=== PATIENT | male | born 1950 | race Caucasian/White ===

== ENCOUNTER → 2017-11-10 19:19 | Outpatient (CLI) | payer MEDICARE, SELFPAY ==
--- NOTE | 2017-11-10 12:00 | CYSPIN_PTH ---
PATIENT: ALIA LEOS LOC: [facility] U#:[id number] AGE/SX: 75/M ROOM: RE11/10/[address]: Dr. Beck Murillo MD : 1950 BED: DIS: SPEC #: [id number] RECD: 11/11/17 08:08 STATUS: MARIANNA JUNO #: [id number] YEIMI: 11/10/17 12:[address]: Beck Murillo DEPT: CYTOLOGY RECD BY: Steven Asher ENTERED: 11/11/17 08:09 SP TYPE: CYSPIN FL OTHR DR: Dr. Ronnie Cardoso MD Tissues: Urine Procedures: Pap Stain (control) Special Stain Group II Cytospin Fluid HEADER OPERATION: Not noted PRE-OP DIAGNOSIS: History of bladder CA TISSUE SUBMITTED: Urine for cytology DIAGNOSIS CYTOLOGY Urine for cytology (cytospin): Negative for malignant cells. AM:efren 11/12/17 CYTOLOGY STUDY Slides are reviewed. CYTOLOGY GROSS Received is 65 ml of clear yellow fluid labeled with the patient's name and and designated per the requisition as urine. Submitted for cytology preparation. 11/11/17 TC:5 CPT: 82855
[2017-11-10 19:21] LABS: Cytology, Body Fluid / CSF SEE PATHOLOGY REPORT
== END ==
PROVIDERS: Family Provider Family Medicine; PCP Family Medicine; Visit Provider Urology
DX: Z85.51 Personal history of malignant neoplasm of bladder (principal)
CPT/HCPCS: 88108; 88313

== ENCOUNTER → 2018-02-20 12:11 | Outpatient (CLI) | payer MEDICARE, SELFPAY ==
--- NOTE | 2018-02-20 | BLA_PTH ---
PATIENT: ALIA LEOS LOC: [facility] U#:[id number] AGE/SX: 75/M ROOM: RE02/20/[address]: Dr. Beck Murillo MD : 1950 BED: DIS: SPEC #: [id number] RECD: 02/20/18 13:27 STATUS: MARIANNA JUNO #: [id number] YEIMI: 02/20/18 00:[address]: Beck Murillo DEPT: SURGICAL PATHOLOGY RECD BY: Angelito Freeman ENTERED: 02/20/18 13:27 SP TYPE: BLADDER BX OTHR DR: Dr. Ronnie Cardoso MD Tissues: Urinary bladder, NOS Procedures: Surgery Specimen Level IV HEADER OPERATION: Bladder biopsy PRE-OP DIAGNOSIS: Bladder CA TISSUE SUBMITTED: Bladder biopsy MICROSCOPIC DIAGNOSIS Bladder, biopsy: Papillary urothelial carcinoma with the following characteristics: Grade ? 1/3 Lamina propria invasion ? not identified Lymphvascular invasion ? not identified Detrusor muscle ? not present in the submitted specimen. JUAN F:efren 02/24/18 COMMENT The entire specimen consists of tumor. Please make reference to previous specimen ([id number]), bladder tumor, TUR and bladder tumor base, TUR (specimen B & C) with diagnosis of papillary urothelial carcinoma and ([id number]) bladder, biopsy with diagnosis of papillary urothelial carcinoma. MICROSCOPIC DESCRIPTION Slides are reviewed. GROSS DESCRIPTION Received in fixative is one container labeled with the patient's name and designated bladder biopsy. The specimen consists of one irregular fragment of light marquis soft tissue that measures 0.2 x 0.1 x 0.1 cm. The specimen is totally submitted in one cassette. / JUAN F:efren 02/20/18 TC:0 CPT: 28726
== END ==
PROVIDERS: Family Provider Family Medicine; PCP Family Medicine; Visit Provider Urology
DX: C67.9 Malignant neoplasm of bladder, unspecified (principal)
CPT/HCPCS: 88305

== ENCOUNTER → 2018-07-16 10:07 | Outpatient (CLI) | payer MEDICARE, SELFPAY ==
[2018-07-16 12:34] LABS: BUN 10 mg/dL (7-18); Creatinine, Serum 1.02 mg/dL (0.70-1.30); Glucose 91 mg/dL (74-106)
[2018-07-16 12:35] LABS: Anion Gap 3 (5-15); BUN/Creat Ratio 9.8 RATIO (10-20); Calcium,Total 8.4 mg/dL (8.5-10.1); Chloride 106 mmol/L (98-107); Cholesterol 197 mg/dL (200); EST Glomerular Filtration Rate 78 mL/min (>60); Est Glom Filt Rate - Afr Amer 94 mL/min (>60); High Density Lipoprotein 72 mg/dL; PSA,Total - Annual Screen 1.43 ng/mL (0.00-4.00); Potassium 3.9 mmol/L (3.5-5.1); Sodium Level 140 mmol/L (136-145); Triglycerides 67 mg/dL; Very Low Density Lipoprotein 13 mg/dL (5-40)
== END ==
PROVIDERS: Family Provider Family Medicine; PCP Family Medicine; Visit Provider Family Medicine
DX: Z13.1 Encounter for screening for diabetes mellitus (principal); Z13.220 Encounter for screening for lipoid disorders; Z12.5 Encounter for screening for malignant neoplasm of prostate; I10 Essential (primary) hypertension
CPT/HCPCS: 36415; 80048; 80061; 84153; G0103

== ENCOUNTER → 2018-10-12 17:01 | Outpatient (CLI) | payer MEDICARE, SELFPAY ==
[2018-08-06 08:59] VITALS: BMI 24.7
== END ==
PROVIDERS: Family Provider Family Medicine; PCP Family Medicine; Referring Provider Urology; Visit Provider Urology
DX: Z85.51 Personal history of malignant neoplasm of bladder (principal); R31.9 Hematuria, unspecified
CPT/HCPCS: 87086

== ENCOUNTER → 2019-08-31 15:28 | Outpatient (CLI) | payer MEDICARE, SELFPAY ==
[2019-08-31 16:50] LABS: Anion Gap 3 (5-15); BUN 15 mg/dL (7-18); BUN/Creat Ratio 15.1 RATIO (10-20); Calcium,Total 8.9 mg/dL (8.5-10.1); Chloride 106 mmol/L (98-107); Creatinine, Serum 0.99 mg/dL (0.70-1.30); EST Glomerular Filtration Rate 80 mL/min (>60); Est Glom Filt Rate - Afr Amer 97 mL/min (>60); Glucose 99 mg/dL (74-106); Potassium 4.4 mmol/L (3.5-5.1); Sodium Level 140 mmol/L (136-145)
== END ==
PROVIDERS: Family Provider Family Medicine; PCP Family Medicine; Referring Provider Internal Medicine Cardiovascular Disease; Visit Provider Internal Medicine Cardiovascular Disease
DX: Q23.1 Congenital insufficiency of aortic valve (principal)
CPT/HCPCS: 36415; 80048

== ENCOUNTER → 2019-09-16 13:15 | Outpatient (CLI) | payer MEDICARE, SELFPAY ==
[2019-08-31 12:15] VITALS: BMI 24.7
--- NOTE | 2019-09-16 14:03 | CT_ITS ---
HISTORY: DILATED AORTIC ROOT, CONGENITAL INSUFFICIENCY AORTIC VALVE ADDITIONAL HISTORY: None provided. TECHNIQUE: CT angiogram images of the chest were obtained with 100 mL Isovue-370 IV contrast as per aortic protocol. 3D MIP images used to aid in vascular evaluation Number of images including paperwork: 1212 A radiation dose optimization technique was used for this scan. COMPARISON: 11/05/2013 FINDINGS: PULMONARY ARTERIES: No pulmonary arterial filling defects. AORTA AND GREAT VESSELS: Aortic valve calcification noted, probably increased compared to previous although difficult to directly compare due to motion artifact on the previous study.. Aortic root measures 3.8 cm. Ascending aorta measures 3.9 cm. Aortic arch measures 3.2 cm, previously 3 cm.. Descending thoracic aorta measures up to 2.9 cm, previously 2.7 cm. HEART/PERICARDIUM: Upper normal size with suggestion of left ventricular hypertrophy, echocardiography more sensitive for cardiac evaluation. Coronary calcification. MEDIASTINUM: Unremarkable. ADENOPATHY: No pathologic appearing adenopathy. THYROID: Unremarkable visualized portions. LUNG PARENCHYMA: No consolidation or mass. Minimal basilar atelectasis versus scarring. PLEURAL SPACES: Unremarkable. UPPER ABDOMEN: Unremarkable. OSSEOUS AND SOFT TISSUE STRUCTURES: No acute skeletal findings. CT/CTA Chest W/WO Contrast IMPRESSION: 1. No aortic aneurysm detected. 2. Possible increase in aortic valve calcification compared to the previous study. 3. Additional findings above. Individualized dose optimization techniques were used for this CT. at 2238 Reported and signed by: Anahi Cool MD Electronically Signed: Anahi Cool MD at 22:38 EST Tel , Service support ,
--- NOTE | 2019-09-16 14:11 | ECHOD_ITS ---
Reason For Study: Bicuspid Aortic Valve Procedure This was a 2D Doppler, Color Flow transthoracic echocardiogram. Exam performed in department. Left Ventricle Normal LV size. Mild concentric left ventricular hypertrophy. Left ventricular systolic function is normal. The estimated ejection fraction is 65 %. No regional wall motion abnormalities noted. Right Ventricle Normal RV size. Normal systolic function. Atria Normal left atrium. Normal right atrium. Mitral Valve Normal mitral valve. Mild (1+) mitral valve insufficiency. Tricuspid Valve Normal tricuspid valve. Mild (1+) tricuspid valve insufficiency. Pulmonary artery systolic pressure is 26 mmHg. Aortic Valve Trisinus/trileaflet aortic valve. Mild focal aortic valve calcification. Peak aortic valve gradient 27 mmHg. Mean aortic valve gradient 14 mmHg. Mild aortic stenosis. Calculated aortic valve area (continuity equation) is 2.0 cm2. Mild (1+) aortic valve insufficiency. Pulmonic Valve Normal pulmonic valve. Great Vessels Normal aortic root. The pulmonary artery is normal size. Normal inferior vena cava. Pericardium/Pleural No pericardial effusion. MMode/2D Measurements & Calculations LVIDd: 5.0 cm IVSd: 1.2 cm LVOT diam: 2.3 cm LVIDs: 2.8 cm LVPWd: 1.2 cm LVOT area: 4.0 cm2 RVDd: 3.1 cm FS: 44.1 % Ao root diam: 4.1 cm LAV(MOD-bp): 51.6 ml LA A4 area: 18.3 cm2 LAV(MOD-bp) Indexed: 25.9 ml/m2 LAV(MOD-sp2): 45.7 ml LAV(MOD-sp4): 52.2 ml LA dimension(2D): 3.2 cm RA A4 area: 15.2 cm2 Doppler Measurements & Calculations MV E max charli: 103.8 cm/sec Lat Peak E' Charli: 12.2 cm/sec Med Peak E' Charli: 8.5 cm/sec MV A max charli: 77.5 cm/sec E/E' lat: 8.5 E/E' med: 12.2 MV E/A: 1.3 Ao V2 max: 261.7 cm/sec AI max charli: 491.5 cm/sec LV V1 max: 132.9 cm/sec Ao max P.4 mmHg AI max P.8 mmHg LV V1 max P.1 mmHg Ao V2 mean: 180.2 cm/sec AI dec slope: 146.4 cm/sec2 LV V1 mean P.7 mmHg Ao mean P.5 mmHg AI P1/2t: 983.4 msec LV V1 mean: 90.5 cm/sec Ao V2 VTI: 58.9 cm LV V1 VTI: 31.3 cm ALCIRA(I,D): 2.1 cm2 ALCIRA(V,D): 2.0 cm2 SV(LVOT): 125.5 ml PA V2 max: 89.6 cm/sec TR max charli: 234.7 cm/sec TR max P.0 mmHg Interpretation Summary Normal LV size. Mild concentric left ventricular hypertrophy. Left ventricular systolic function is normal. The estimated ejection fraction is 65 %. Mild focal aortic valve calcification. Mean aortic valve gradient 14 mmHg. Mild (1+) aortic valve insufficiency. Mild aortic stenosis. Ordering Physician: Familia Tee Referring Physician: Ronnie Cardoso MD Performed By: Mary Estes RDCS
== END ==
PROVIDERS: Family Provider Family Medicine; PCP Family Medicine; Referring Provider Internal Medicine Cardiovascular Disease; Visit Provider Internal Medicine Cardiovascular Disease
DX: Q23.1 Congenital insufficiency of aortic valve (principal)
CPT/HCPCS: 71275; 93306

== ENCOUNTER → 2020-02-08 | Outpatient (CLI) | payer MEDICARE, SELFPAY ==
[2019-08-31 12:15] VITALS: BMI 24.7
--- NOTE | 2020-02-08 09:15 | FLU_PTH ---
PATIENT: ALIA LEOS [facility] U[facility][id number] AGE/SX: 70/M ROOM: RE02/08/[address]: Dr. Beck Murillo MD : 1950 BED: DIS: 02/08/2020 SPEC #: [id number] RECD: 02/08/20 15:00 STATUS: MARIANNA JUNO #: [id number] YEIMI: 02/08/20 09:[address]: Beck Murillo DEPT: CYTOLOGY RECD BY: Marlon Dozier ENTERED: 02/09/20 08:57 SP TYPE: Fluid OTHR DR: Dr. Ronnie Cardoso MD Tissues: Urine Procedures: Special Stain Group II Cytospin Fluid HEADER OPERATION: Not noted PRE-OP DIAGNOSIS: Malignant neoplasm of bladder C67.8 TISSUE SUBMITTED: Urine for cytology DIAGNOSIS CYTOLOGY Urine for cytology (cytospin): Negative for malignant cells. Paucicellular specimen. See comment. SJ:efren 02/10/20 COMMENT Acellular amorphous material is also noted. Clinical correlation and appropriate follow up are necessary. Please make reference to previous specimens ([id number]) bladder tumor, TUR and bladder tumor base, TUR and ([id number]) bladder, biopsy and ([id number]) bladder, biopsy with diagnosis of papillary urothelial carcinoma. CYTOLOGY STUDY Slides are reviewed. CYTOLOGY GROSS Received is 30 ml of yellow hazy fluid labeled with the patient's name and and designated per the requisition as urine. Submitted for cytology preparation. / efren 02/09/20 TC:5 CPT: 88371
[2020-02-08 17:14] LABS: Cytology, Body Fluid / CSF SEE PATHOLOGY REPORT
== END | disposition home or self-care (01) ==
PROVIDERS: PCP Family Medicine; Referring Provider Urology; Visit Provider Urology
DX: C67.8 Malignant neoplasm of overlapping sites of bladder (principal)
CPT/HCPCS: 88108; 88313

== ENCOUNTER → 2020-07-31 | Outpatient (CLI) | payer MEDICARE, SELFPAY ==
[2019-08-31 12:15] VITALS: BMI 24.7
--- NOTE | 2020-07-31 | CYSPIN_PTH ---
PATIENT: ALIA LEOS [facility] U[facility][id number] AGE/SX: 70/M ROOM: RE07/31/[address]: Dr. Beck Murillo MD : 1950 BED: DIS: 07/31/2020 SPEC #: [id number] RECD: 07/31/20 11:30 STATUS: MARIANNA JUNO #: [id number] YEIMI: 07/31/20 00:[address]: Beck Murillo DEPT: CYTOLOGY RECD BY: Marlon Dozier ENTERED: 07/31/20 13:18 SP TYPE: CYSPIN FL OTHR DR: Dr. Ronnie Cardoso MD Tissues: Urine Procedures: Pap Stain (control) Special Stain Group II Cytospin Fluid HEADER OPERATION: Not noted PRE-OP DIAGNOSIS: Asymptomatic microscopic hematuria TISSUE SUBMITTED: Urine for cytology DIAGNOSIS CYTOLOGY Urine for cytology (cytospin): Negative for malignant cells. Paucicellular specimen. SJ:efren 08/01/20 COMMENT Correlation with clinical findings and appropriate follow up are necessary. Please make reference to previous specimens ([id number]) urine for cytology with diagnosis of negative for malignant cells and paucicellular specimen and ([id number]) bladder tumor, TUR and bladder tumor base, TUR and ([id number]) bladder, biopsy and ([id number]) bladder, biopsy with diagnosis of papillary urothelial carcinoma. CYTOLOGY STUDY Slides are reviewed. CYTOLOGY GROSS Received is 20 ml of yellow cloudy fluid labeled with the patient's name and and designated per the requisition as urine. Submitted for cytology preparation. / efren 07/31/20 TC:5 CPT: 64571
[2020-07-31 11:33] LABS: Cytology, Body Fluid / CSF SEE PATHOLOGY REPORT
== END | disposition home or self-care (01) ==
PROVIDERS: PCP Family Medicine; Referring Provider Urology; Visit Provider Urology
DX: R31.21 Asymptomatic microscopic hematuria (principal)
CPT/HCPCS: 88108; 88313

== ENCOUNTER → 2020-08-07 09:03 | Outpatient (CLI) | payer MEDICARE, SELFPAY ==
[2019-08-31 12:15] VITALS: BMI 24.7
--- NOTE | 2020-08-07 09:07 | RAD_ITS ---
STUDY: X-RAY - CERVICAL SPINE REASON FOR EXAM: Male, 70 years old. Neck pain TECHNIQUE: 5 view(s) of the cervical spine were obtained including oblique views. COMPARISON: None FINDINGS: Normal anterior atlantoaxial articulation. Normal odontoid process. There is reversal of the normal cervical lordosis. There is multi-level endplate spondylosis. There is multi-level degenerative disc disease with multilevel disc space narrowing. No neural foraminal stenosis at the C4-C5 and C5-C6 levels. The soft tissue structures are unremarkable. RAD/Cerv Spine 4 or 5 Views IMPRESSION: Multilevel disc space narrowing and spondylosis with narrowing of the intervertebral foramen at the C4-C5 and C5-C6 levels. Electronically Signed: Isaiah Cordero, at 15:57 EST , Service support ,
[2020-08-07 10:42] LABS: Anion Gap 5 (5-15); BUN 13 mg/dL (7-18); BUN/Creat Ratio 13.6 RATIO (10-20); Calcium,Total 8.9 mg/dL (8.5-10.1); Chloride 104 mmol/L (98-107); Creatinine, Serum 0.96 mg/dL (0.70-1.30); EST Glomerular Filtration Rate 83 mL/min (>60); Est Glom Filt Rate - Afr Amer 100 mL/min (>60); Glucose 92 mg/dL (74-106); PSA,Total - Annual Screen 0.64 ng/mL (0.00-4.00); Potassium 4.3 mmol/L (3.5-5.1); Sodium Level 141 mmol/L (136-145)
== END ==
PROVIDERS: PCP Family Medicine; Referring Provider Family Medicine; Visit Provider Family Medicine
DX: I10 Essential (primary) hypertension (principal); Z12.5 Encounter for screening for malignant neoplasm of prostate; M54.2 Cervicalgia
CPT/HCPCS: 36415; 72050; 80048; 84153; G0103

== ENCOUNTER 2020-08-14 15:11 | Outpatient (RCR) | payer MEDICARE, SELFPAY ==
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
--- NOTE | 2020-10-04 10:57 | HP.PT.NRP ---
ALIA LEOS was seen in my office for initial evaluation on 08/14/20. The following Plan of Care was established for this patient: Initial Frequency: 1x/Week Initial Duration: 1 Week Patient/Client Instruction: Educate patient on: Condition, Plan of Care For the Purpose of:: To improve self management Therapeutic Exercise to Include: Strength training, Postural training, Flexibilty training, Neuromotor development For the Purpose of:: To increase ROM This patient was last seen in our office 08/14/20. Pertinent comments regarding their Physical therapy will appear below: This patient has not returned to Physical Therapy and is appropriate to return to MD for further follow-up as needed. At this point I will be discontinuing this patient from physical therapy. I would be happy to see this patient again in the future if found appropriate by the physician. Thank you! Veronique Peraza, PT, Cert MDT
== END 2020-08-14 19:00 | disposition home or self-care (01) ==
LOC: PT 15:11
PROVIDERS: PCP Family Medicine; Referring Provider Family Medicine; Visit Provider Family Medicine
DX: M54.2 Cervicalgia (principal)
CPT/HCPCS: 97162; 97530

== ENCOUNTER → 2021-08-02 | Outpatient (CLI) | payer MEDICARE, SELFPAY ==
--- NOTE | 2021-08-02 | CYSPIN_PTH ---
PATIENT: ALIA LEOS [facility] U#:[id number] AGE/SX: 71/M ROOM: RE08/02/[address]: Dr. Beck Murillo MD : 1950 BED: DIS: 08/02/2021 SPEC #: [id number] RECD: 08/03/21 08:54 STATUS: MARIANNA FRAIRE #: [id number] YEIMI: 08/02/21 00:[address]: Beck Murillo DEPT: CYTOLOGY RECD BY: Angelito Freeman ENTERED: 08/03/21 08:57 SP TYPE: CYSPIN FL OTHR DR: Dr. Ronnie Cardoso MD Tissues: Urine Procedures: Pap Stain (control) Special Stain Group II Cytospin Fluid HEADER OPERATION: Not noted PRE-OP DIAGNOSIS: Malignant neoplasm of bladder TISSUE SUBMITTED: Urine for cytology DIAGNOSIS CYTOLOGY Urine for cytology (cytospin): Paucicellular specimen with rare mildly atypical cells and degenerated cells. See comment. SJ:rg 08/03/2021 COMMENT Red blood cells are also present. Clinical correlation and appropriate follow up are necessary. Please make reference to previous specimens ([id number]) bladder tumor, TUR with diagnosis of ?papillary urothelial carcinoma? and ([id number]) bladder, biopsy with diagnosis of ?papillary urothelial carcinoma.? CYTOLOGY STUDY Slides are reviewed. CYTOLOGY GROSS Received is 40 ml of light yellow clear fluid labeled with the patient's name and and designated per the requisition as urine. Submitted for cytology preparation. / efren 08/03/2021 TC:5 CPT: 20612
[2021-08-02 16:26] LABS: Cytology, Body Fluid / CSF SEE PATHOLOGY REPORT
== END | disposition home or self-care (01) ==
LOC: LABSPEC 15:49
PROVIDERS: PCP Family Medicine; Visit Provider Urology
DX: C67.2 Malignant neoplasm of lateral wall of bladder (principal)
CPT/HCPCS: 88108; 88313

== ENCOUNTER → 2021-08-07 08:20 | Outpatient (CLI) | payer MEDICARE, SELFPAY ==
[2021-08-07 10:36] LABS: Anion Gap 4 (5-15); BUN 11 mg/dL (7-18); Calcium,Total 8.7 mg/dL (8.5-10.1); Chloride 106 mmol/L (98-107); Cholesterol 200 mg/dL (200); EST Glomerular Filtration Rate 79 mL/min (>60); Est Glom Filt Rate - Afr Amer 95 mL/min (>60); Glucose 86 mg/dL (74-106); High Density Lipoprotein 78 mg/dL; PSA,Total - Annual Screen 0.74 ng/mL (0.00-4.00); Potassium 4.2 mmol/L (3.5-5.1); Sodium Level 140 mmol/L (136-145); Triglycerides 55 mg/dL; Very Low Density Lipoprotein 11 mg/dL (5-40)
== END ==
PROVIDERS: PCP Family Medicine; Referring Provider Family Medicine; Visit Provider Family Medicine
DX: I10 Essential (primary) hypertension (principal); E78.5 Hyperlipidemia, unspecified; Z12.5 Encounter for screening for malignant neoplasm of prostate
CPT/HCPCS: 36415; 80048; 80061; 84153; G0103

== ENCOUNTER → 2022-08-05 | Outpatient (CLI) | payer MEDICARE, SELFPAY ==
--- NOTE | 2022-08-05 | CYSPIN_PTH ---
PATIENT: ALIA LEOS LOC: [facility] U#:[id number] AGE/SX: 72/M ROOM: RE08/05/[address]: Dr. Beck Murillo MD : 1950 BED: DIS: 08/05/2022 SPEC #: [id number] RECD: 08/06/22 08:21 STATUS: MARIANNA REJake #: [id number] YEIMI: 08/05/22 00:[address]: Beck Murillo DEPT: CYTOLOGY RECD BY: Angelito Freeman ENTERED: 08/06/22 08:21 SP TYPE: CYSPIN FL OTHR DR: Dr. Ronnie Cardoso MD Tissues: Urine Procedures: Pap Stain (control) Special Stain Group II Cytospin Fluid HEADER OPERATION: Not noted PRE-OP DIAGNOSIS: Malignant neoplasm of bladder TISSUE SUBMITTED: Urine for cytology DIAGNOSIS CYTOLOGY Urine for cytology (cytospin): Rare mildly atypical urothelial cells noted ([facility]a Cytology Category III). Paucicellular specimen. See comment. SJ:efren 08/06/2022 COMMENT The Minerva System for urine cytology diagnostic categorization was used in the evaluation of this case. Please make reference to previous specimens ([id number]) bladder tumor, TUR with diagnosis of ?papillary urothelial carcinoma? and ([id number]) bladder, biopsy with diagnosis of ?papillary urothelial carcinoma? and ([id number]) bladder, biopsy with diagnosis of ?papillary urothelial carcinoma.? Case has been reviewed in consultation with Dr. Callahan who concurs with the above diagnosis. IDC:AM CYTOLOGY STUDY Slides are reviewed. CYTOLOGY GROSS Received is 5 ml of yellow cloudy fluid labeled with the patient's name and and designated per the requisition as urine. Submitted for cytology preparation. / efren 08/05/2022 TC:5 CPT: 05289
[2022-08-05 15:58] LABS: Cytology, Body Fluid / CSF SEE PATHOLOGY REPORT
== END | disposition home or self-care (01) ==
LOC: LABSPEC 15:35
PROVIDERS: PCP Family Medicine; Referring Provider Urology; Visit Provider Urology
DX: Z85.51 Personal history of malignant neoplasm of bladder (principal)
CPT/HCPCS: 88108; 88313

== ENCOUNTER → 2022-08-08 | Outpatient (CLI) | payer MEDICARE, SELFPAY ==
--- NOTE | 2022-08-08 09:05 | EKG12_ITS ---
Test Reason : PRE-OP Blood Pressure : / mmHG Vent. Rate : 070 BPM Atrial Rate : 070 BPM P-R Int : 144 ms QRS Dur : 072 ms QT Int : 376 ms P-R-T Axes : 075 -20 045 degrees QTc Int : 406 ms Normal sinus rhythm Normal ECG Confirmed by SOCORRO ERICKSON, DM ([id number]), business editor TERRI CANTRELL ([id number]) on 08/13/2022 10:54:57 AM Referred By: Beck Murillo Confirmed By:LOIDA QUINTANILLA MD
[2022-08-08 09:29] LABS: Hematocrit 45.9 % (40-54); Hemoglobin 15.3 g/dL (13.0-16.5); Mean Corp Hgb Conc 33.3 g/dL (32-36); Mean Corpuscular Hgb 29.3 pg (27.0-32.0); Mean Corpuscular Volume 87.8 fL (80-94); Mean Platelet Vol. 9.8 fl (6.2-12.0); Platelet Count 292 K/mm3 (150-450); RBC Distribution Width CV 12.9 % (11.6-14.6); RBC Distribution Width SD 41.5 fl (35.1-43.9); Red Blood Count 5.23 M/mm3 (4.6-6.2); White Blood Count 6.8 K/mm3 (4.4-11.0)
[2022-08-08 10:14] LABS: Anion Gap 5 (5-15); BUN 13 mg/dL (7-18); BUN/Creat Ratio 14.3 RATIO (10-20); Calcium,Total 8.8 mg/dL (8.5-10.1); Chloride 104 mmol/L (98-107); Creatinine, Serum 0.91 mg/dL (0.70-1.30); EST Glomerular Filtration Rate 87 mL/min (>60); Est Glom Filt Rate - Afr Amer 106 mL/min (>60); Glucose 101 mg/dL (74-106); Sodium Level 139 mmol/L (136-145)
== END | disposition home or self-care (01) ==
PROVIDERS: PCP Family Medicine; Referring Provider Urology; Visit Provider Urology
DX: Z01.810 Encounter for preprocedural cardiovascular examination (principal); Z01.812 Encounter for preprocedural laboratory examination
CPT/HCPCS: 36415; 80048; 85027; 93005

== ENCOUNTER → 2022-08-30 | Outpatient (CLI) | payer MEDICARE, SELFPAY ==
--- NOTE | 2022-08-30 | BLA_PTH ---
PATIENT: [facility]IA [facility]OS [facility] U[facility][id number] AGE/SX: 72/M ROOM: RE08/30/[address]: Dr. Beck Murillo MD : 1950 BED: DIS: 08/30/2022 SPEC #: [id number] RECD: 08/30/22 15:02 STATUS: MARIANNA FRAIRE #: [id number] YEIMI: 08/30/22 00:[address]: Beck Murillo DEPT: SURGICAL PATHOLOGY RECD BY: Angelito Freeman ENTERED: 09/02/22 09:59 SP TYPE: BLADDER BX OTHR DR: Dr. Ronnie Cardoso MD [facility] Tissues: Urinary bladder, NOS Procedures: Surgery Specimen Level IV HEADER OPERATION: Cystoscopy with fulguration and biopsy PRE-OP DIAGNOSIS: Asymptomatic hematuria TISSUE SUBMITTED: Bladder tissue MICROSCOPIC DIAGNOSIS Urinary bladder tissue, biopsy: Consistent with urothelial carcinoma with the following characteristics: Grade ? 1/3 Lymphvascular invasion ? not identified. Detrusor muscle ? not present in biopsy. AM:efren 09/03/2022 COMMENT Reference is made to the patient's previous urinary bladder, TUR ([id number]) in which low grade urothelial carcinoma was identified. Case has been reviewed in consultation with Dr. Fagan who concurs with the above diagnosis. IDC:JUAN F MICROSCOPIC DESCRIPTION Slides are reviewed. GROSS DESCRIPTION Received in fixative is one container labeled with the patient's name and designated bladder tissue. The specimen consists of one irregular fragment of light marquis soft tissue that measures 0.2 x 0.1 x 0.1 cm. The specimen is totally submitted in one cassette. / JUAN F:efren 09/02/2022 TC:0 CPT: 45490
== END | disposition home or self-care (01) ==
LOC: LABSPEC 16:18
PROVIDERS: PCP Family Medicine; Visit Provider Urology
DX: R31.9 Hematuria, unspecified (principal)
CPT/HCPCS: 88305

== ENCOUNTER → 2022-10-02 | Outpatient (CLI) | payer MEDICARE, SELFPAY ==
[2022-10-02 10:40] LABS: Cholesterol 263 mg/dL (200); High Density Lipoprotein 86 mg/dL; Triglycerides 94 mg/dL; Very Low Density Lipoprotein 19 mg/dL (5-40)
== END | disposition home or self-care (01) ==
LOC: MFPLAB 08:18
PROVIDERS: PCP Family Medicine; Referring Provider Family Medicine; Visit Provider Family Medicine
DX: E78.5 Hyperlipidemia, unspecified (principal); Z12.5 Encounter for screening for malignant neoplasm of prostate
CPT/HCPCS: 36415; 80061; 84153; G0103

== ENCOUNTER → 2023-04-03 | Outpatient (CLI) | payer MEDICARE, SELFPAY ==
[2023-04-03 10:40] LABS: Anion Gap 7 (5-15); BUN 16 mg/dL (7-18); BUN/Creat Ratio 16.3 RATIO (10-20); Calcium,Total 8.6 mg/dL (8.5-10.1); Chloride 108 mmol/L (98-107); Creatinine, Serum 0.98 mg/dL (0.70-1.30); EST Glomerular Filtration Rate 80 mL/min (>60); Est Glom Filt Rate - Afr Amer 97 mL/min (>60); Glucose 93 mg/dL (74-106); Potassium 3.9 mmol/L (3.5-5.1); Sodium Level 143 mmol/L (136-145)
[2023-04-07 08:25] LABS: Cholesterol 219 mg/dL (200); High Density Lipoprotein 83 mg/dL; Triglycerides 75 mg/dL; Very Low Density Lipoprotein 15 mg/dL (5-40)
== END | disposition home or self-care (01) ==
LOC: MFPLAB 08:38
PROVIDERS: PCP Family Medicine; Visit Provider Family Medicine
DX: I10 Essential (primary) hypertension (principal); E78.5 Hyperlipidemia, unspecified
CPT/HCPCS: 36415; 80048; 80061

== ENCOUNTER → 2023-10-07 | Outpatient (CLI) | payer MEDICARE, SELFPAY ==
[2023-10-07 10:19] LABS: Absolute Lymphocyte Count 1.69 X10^3/uL (0.83-4.51); Absolute Neutrophil Count 3.6 X10^3/uL (2.0-7.7); Basophil# 0.05 X10^3/uL; Basophil% 0.8 % (0-1); Eosinophil# 0.22 X10^3/uL; Eosinophils% 3.7 % (0-5); Hematocrit 43.3 % (40-54); Hemoglobin 13.7 g/dL (13.0-16.5); Lymphocyte # 1.69 X10^3/ul (0.83-4.51); Lymphocyte % 28.4 % (19-41); Mean Corp Hgb Conc 31.6 g/dL (32-36); Mean Corpuscular Hgb 27.9 pg (27.0-32.0); Mean Corpuscular Volume 88.2 fL (80-94); Mean Platelet Vol. 9.7 fl (6.2-12.0); Monocyte# 0.42 X10^3/uL; NRBC Flagged by Analyzer 0 % (0-5); Neutrophil # 3.56 X10^3/uL (2.7-7.7); Neutrophil % 59.8 % (47-70); Platelet Count 291 K/mm3 (150-450); RBC Distribution Width CV 12.3 % (11.6-14.6); RBC Distribution Width SD 39.5 fl (35.1-43.9); Red Blood Count 4.91 M/mm3 (4.6-6.2)
[2023-10-07 10:52] LABS: ALB/GLOB Ratio 0.8 RATIO (0.9-2.4); AST(SGOT) 20 U/L (15-37); Alanine Aminotransfer ALT/SGPT 21 U/L (16-61); Albumin, Serum 3.1 g/dL (3.2-5.0); Alkaline Phosphatase 80 U/L (45-117); Anion Gap 4 (5-15); BUN 12 mg/dL (7-18); BUN/Creat Ratio 12.9 RATIO (10-20); Calcium,Total 8.6 mg/dL (8.5-10.1); Chloride 109 mmol/L (98-107); Cholesterol 183 mg/dL (200); Creatinine, Serum 0.93 mg/dL (0.70-1.30); EST Glomerular Filtration Rate 85 mL/min (>60); Est Glom Filt Rate - Afr Amer 103 mL/min (>60); Globulin 3.8 g/dL (2.2-4.2); Glucose 94 mg/dL (74-106); High Density Lipoprotein 61 mg/dL; PSA,Total - Annual Screen 1.53 ng/mL (0.00-4.00); Potassium 3.8 mmol/L (3.5-5.1); Protein, Total 6.9 g/dL (6.4-8.2); Sodium Level 140 mmol/L (136-145); Triglycerides 79 mg/dL; Very Low Density Lipoprotein 16 mg/dL (5-40)
== END | disposition home or self-care (01) ==
LOC: MFPLAB 09:44
PROVIDERS: PCP Family Medicine; Visit Provider Family Medicine
DX: Z12.5 Encounter for screening for malignant neoplasm of prostate (principal); I10 Essential (primary) hypertension; E78.5 Hyperlipidemia, unspecified
CPT/HCPCS: 36415; 80053; 80061; 84153; 85025; G0103

== ENCOUNTER → 2024-06-01 | Outpatient (CLI) | payer MEDICARE, SELFPAY ==
[2024-06-01 09:57] LABS: Absolute Lymphocyte Count 3.02 X10^3/uL (0.83-4.51); Absolute Neutrophil Count 2.5 X10^3/uL (2.0-7.7); Basophil# 0.04 X10^3/uL; Basophil% 0.7 % (0-1); Eosinophil# 0.07 X10^3/uL; Eosinophils% 1.2 % (0-5); Hematocrit 39.7 % (40-54); Hemoglobin 12.5 g/dL (13.0-16.5); Lymphocyte # 3.02 X10^3/ul (0.83-4.51); Lymphocyte % 49.8 % (19-41); Mean Corp Hgb Conc 31.5 g/dL (32-36); Mean Corpuscular Hgb 27.5 pg (27.0-32.0); Mean Corpuscular Volume 87.3 fL (80-94); Mean Platelet Vol. 10.1 fl (6.2-12.0); Monocyte# 0.41 X10^3/uL; Monocyte% 6.8 % (0-10); NRBC Flagged by Analyzer 0 % (0-5); Neutrophil # 2.52 X10^3/uL (2.7-7.7); Neutrophil % 41.3 % (47-70); POSITIVE MORPHOLOGY YES; Platelet Count 280 K/mm3 (150-450); RBC Distribution Width CV 13.4 % (11.6-14.6); RBC Distribution Width SD 42.8 fl (35.1-43.9); Red Blood Count 4.55 M/mm3 (4.6-6.2); White Blood Count 6.1 K/mm3 (4.4-11.0)
[2024-06-01 10:15] LABS: Differential Indicated SCAN CRITERIA MET
[2024-06-01 10:43] LABS: Atypical Lymphocyte 1+ %
[2024-06-01 11:30] LABS: ALB/GLOB Ratio 0.6 RATIO (0.9-2.4); AST(SGOT) 17 U/L (15-37); Alanine Aminotransfer ALT/SGPT 39 U/L (16-61); Albumin, Serum 2.9 g/dL (3.2-5.0); Alkaline Phosphatase 78 U/L (45-117); Anion Gap 6 (5-15); BUN 10 mg/dL (7-18); BUN/Creat Ratio 11.4 RATIO (10-20); Chloride 103 mmol/L (98-107); Creatinine, Serum 0.88 mg/dL (0.70-1.30); EST Glomerular Filtration Rate 91 mL/min (>60); Est Glom Filt Rate - Afr Amer 110 mL/min (>60); Globulin 4.5 g/dL (2.2-4.2); Glucose 110 mg/dL (74-106); Iron 102 ug/dL (65-175); Magnesium 2.4 mg/dL (1.6-2.6); Potassium 3.9 mmol/L (3.5-5.1); Protein, Total 7.4 g/dL (6.4-8.2); Sodium Level 137 mmol/L (136-145)
== END | disposition home or self-care (01) ==
LOC: MFPLAB 09:09
PROVIDERS: PCP Family Medicine; Visit Provider Family Medicine
DX: R53.83 Other fatigue (principal); I49.9 Cardiac arrhythmia, unspecified
CPT/HCPCS: 36415; 80053; 83540; 83735; 83880; 84443; 85025

== ENCOUNTER → 2024-06-02 | Outpatient (CLI) | payer MEDICARE, SELFPAY ==
[2024-06-03 16:09] LABS: EBV Acute VCA IgM > 160.0 U/mL (0.0-35.9)
== END | disposition home or self-care (01) ==
LOC: MFPLAB 10:36
PROVIDERS: PCP Family Medicine; Visit Provider Family Medicine
DX: D72.829 Elevated white blood cell count, unspecified (principal)
CPT/HCPCS: 36415; 86664; 86665

== ENCOUNTER → 2024-07-15 | Outpatient (CLI) | payer MEDICARE, SELFPAY ==
--- NOTE | 2024-07-15 13:56 | ECHOD_ITS ---
Reason For Study: Congenital Insufficiency of Aortic Valve Procedure This was a 2D Doppler, Color Flow transthoracic echocardiogram. Exam performed in department. Left Ventricle Normal LV size. Left ventricular systolic function is normal. The left ventricular ejection fraction is 65 %. No regional wall motion abnormalities noted. Right Ventricle Normal RV size. Normal systolic function. Atria Normal left atrium. Normal right atrium. Mitral Valve Normal mitral valve. Tricuspid Valve Normal tricuspid valve. Mild (1+) tricuspid valve insufficiency. Pulmonary artery systolic pressure is 31 mmHg. Aortic Valve Trisinus/trileaflet aortic valve. Moderate focal aortic valve calcification. Peak aortic valve gradient 40 mmHg. Mean aortic valve gradient 20 mmHg. Moderate aortic stenosis. Pulmonic Valve Normal pulmonic valve. Great Vessels Normal aortic root. The pulmonary artery is normal size. Inferior vena cava collapse with respiration. Pericardium/Pleural No pericardial effusion. MMode/2D Measurements & Calculations LVIDd: 5.7 cm IVSd: 0.95 cm LVOT diam: 2.0 cm LVIDs: 4.1 cm LVPWd: 0.90 cm LVOT area: 3.3 cm2 RVDd: 4.4 cm FS: 28.0 % Ao root diam: 3.6 cm LAV(MOD-sp4): 52.1 ml LVAd ap4: 34.7 cm2 LVLd ap4: 7.8 cm EDV(MOD-sp4): 126.4 ml EDV(sp4-el): 131.9 ml LVAs ap4: 19.3 cm2 LVLs ap4: 6.7 cm ESV(MOD-sp4): 46.8 ml ESV(sp4-el): 47.7 ml EF(MOD-sp4): 63.0 % EF(sp4-el): 63.8 % SV(MOD-sp4): 79.6 ml SV(sp4-el): 84.1 ml Ao sinus diam: 3.[address] Junction: 2.9 cm LA dimension(2D): 3.5 cm LA A4 area: 18.5 cm2 RA A4 area: 19.2 cm2 TAPSE: 1.9 cm Time Measurements MV dec time: 0.28 sec Doppler Measurements & Calculations MV E max charli: 104.9 cm/sec Lat Peak E' Charli: 11.8 cm/sec Med Peak E' Charli: 7.5 cm/sec MV A max charli: 102.1 cm/sec E/E' lat: 8.9 E/E' med: 14.0 MV E/A: 1.0 MV V2 max: 113.7 cm/sec MV P1/2t max charli: 113.9 cm/sec Ao V2 max: 314.4 cm/sec MV max P.2 mmHg MV P1/2t: 87.2 msec Ao max P.7 mmHg MV V2 mean: 62.9 cm/sec Ao V2 mean: 204.4 cm/sec MV mean P.9 mmHg MV dec slope: 382.3 cm/sec2 Ao mean P.9 mmHg MV V2 VTI: 38.9 cm MVA(P1/2t): 2.5 cm2 Ao V2 VTI: 70.8 cm AV (velocity ratio): 0.33 MVA(VTI): 2.0 cm2 ALCIRA(I,D): 1.1 cm2 ALCIRA(V,D): 1.1 cm2 LV V1 max: 103.3 cm/sec SV(LVOT): 76.4 ml PA V2 max: 106.8 cm/sec LV V1 max P.3 mmHg LV V1 mean P.3 mmHg LV V1 mean: 71.2 cm/sec LV V1 VTI: 23.4 cm TR max charli: 265.4 cm/sec TR max P.2 mmHg ECHO/Echo Complete Interpretation Summary Normal LV size. Left ventricular systolic function is normal. No regional wall motion abnormalities noted. The left ventricular ejection fraction is 65 %. Moderate focal aortic valve calcification. Mean aortic valve gradient 20 mmHg. Moderate aortic stenosis. Ordering Physician: Ronnie Cardoso Referring Physician: Ronnie Cardoso Performed By: Hasmukh Beckham RCS
== END | disposition home or self-care (01) ==
PROVIDERS: PCP Family Medicine; Referring Provider Family Medicine; Visit Provider Family Medicine
DX: Q23.1 Congenital insufficiency of aortic valve (principal)
CPT/HCPCS: 93306

== ENCOUNTER → 2024-10-06 | Outpatient (CLI) | payer MEDICARE, SELFPAY ==
[2024-10-06 10:12] LABS: Hematocrit 45.4 % (40-54); Hemoglobin 14.5 g/dL (13.0-16.5); Mean Corp Hgb Conc 31.9 g/dL (32-36); Mean Corpuscular Hgb 27.9 pg (27.0-32.0); Mean Corpuscular Volume 87.5 fL (80-94); Mean Platelet Vol. 10.1 fl (6.2-12.0); Platelet Count 278 K/mm3 (150-450); RBC Distribution Width CV 12.4 % (11.6-14.6); RBC Distribution Width SD 39.2 fl (35.1-43.9); Red Blood Count 5.19 M/mm3 (4.6-6.2); White Blood Count 5.9 K/mm3 (4.4-11.0)
[2024-10-06 11:28] LABS: ALB/GLOB Ratio 0.9 RATIO (0.9-2.4); AST(SGOT) 22 U/L (15-37); Alanine Aminotransfer ALT/SGPT 22 U/L (16-61); Albumin, Serum 3.7 g/dL (3.2-5.0); Alkaline Phosphatase 83 U/L (45-117); Anion Gap 7 (5-15); BUN 9 mg/dL (7-18); BUN/Creat Ratio 9.9 RATIO (10-20); Chloride 103 mmol/L (98-107); Cholesterol 234 mg/dL (200); Creatinine, Serum 0.91 mg/dL (0.70-1.30); EST Glomerular Filtration Rate 87 mL/min (>60); Est Glom Filt Rate - Afr Amer 105 mL/min (>60); Glucose 91 mg/dL (74-106); High Density Lipoprotein 86 mg/dL; Potassium 3.7 mmol/L (3.5-5.1); Protein, Total 7.7 g/dL (6.4-8.2); Sodium Level 137 mmol/L (136-145); Triglycerides 101 mg/dL; Very Low Density Lipoprotein 20 mg/dL (5-40)
== END | disposition home or self-care (01) ==
LOC: MFPLAB 08:07
PROVIDERS: PCP Family Medicine; Referring Provider Family Medicine; Visit Provider Family Medicine
DX: Q23.1 Congenital insufficiency of aortic valve (principal); I10 Essential (primary) hypertension
CPT/HCPCS: 36415; 80053; 80061; 85027

== ENCOUNTER → 2024-10-11 | Outpatient (CLI) | payer MEDICARE, SELFPAY ==
[2024-10-11 16:46] LABS: Anion Gap 4 (5-15); BUN 13 mg/dL (7-18); BUN/Creat Ratio 13.7 RATIO (10-20); Calcium,Total 8.6 mg/dL (8.5-10.1); Chloride 107 mmol/L (98-107); Creatinine, Serum 0.95 mg/dL (0.70-1.30); EST Glomerular Filtration Rate 83 mL/min (>60); Est Glom Filt Rate - Afr Amer 101 mL/min (>60); Glucose 111 mg/dL (74-106); PSA,Total - Annual Screen 1.42 ng/mL (0.00-4.00); Potassium 4.1 mmol/L (3.5-5.1); Sodium Level 140 mmol/L (136-145)
== END | disposition home or self-care (01) ==
LOC: LAB 14:45
PROVIDERS: PCP Family Medicine; Referring Provider Urology; Visit Provider Urology
DX: C67.2 Malignant neoplasm of lateral wall of bladder (principal); Z12.5 Encounter for screening for malignant neoplasm of prostate
CPT/HCPCS: 36415; 80048; 84153; G0103

== ENCOUNTER → 2024-10-22 | Outpatient (CLI) | payer MEDICARE, SELFPAY ==
--- NOTE | 2024-10-22 10:20 | BLA_PTH ---
PATIENT: ALIA LEOS LOC: [facility] U#:[id number] AGE/SX: 74/M ROOM: RE10/22/[address]: Dr. Beck Murillo MD : [id number] BED: DIS: 10/22/2024 SPEC #: [id number] RECD: 10/25/24 16:17 STATUS: MARIANNA FRAIRE #: [id number] YEIMI: 10/22/24 10:[address]: Beck Murillo DEPT: SURGICAL PATHOLOGY RECD BY: Sobeida Bro ENTERED: 10/26/24 09:47 SP TYPE: BLADDER BX OTHR DR: Dr. Ronnie Cardoso MD Tissues: Urinary bladder, NOS Procedures: Surgery Specimen Level IV HEADER OPERATION: Cystoscopy, bladder biopsy with fulguration PRE-OP DIAGNOSIS: Malignant neoplasm of lateral wall of bladder, neoplasm of uncertain behavior of bladder TISSUE SUBMITTED: Bladder biopsy MICROSCOPIC DIAGNOSIS Urinary Bladder, Biopsies: Urothelial mucosa with atypia, favor reactive. Fragments of squamous mucosa , 10/29/2024 MICROSCOPIC DESCRIPTION Slides are reviewed. GROSS DESCRIPTION Received in fixative is one container labeled with the patient's name and designated Bladder biopsy. The specimen consists of three minute fragments of marquis soft tissue that in aggregate measure 0.3 x 0.1 x 0.1 cm. The specimen is totally submitted in one cassette. 10/26/2024 TC:4 CPT:24082
== END | disposition home or self-care (01) ==
LOC: LABSPEC 10-26 10:15
PROVIDERS: PCP Family Medicine; Referring Provider Urology; Visit Provider Urology
DX: D41.4 Neoplasm of uncertain behavior of bladder (principal)
CPT/HCPCS: 88305